=== PATIENT | female | born 1990 | race Caucasian/White ===

== ENCOUNTER 2020-05-03 00:11 | Emergency (ER) | payer MEDICAID, OTHER ==
[~2020-05-03] VITALS: Ht 160 cm; Wt 100.0 kg
[2020-05-03 01:30] VITALS: BP 115/58
== END 2020-05-03 02:16 | disposition home or self-care (01) ==
LOC: ER 00:22
DX: F10.129 Alcohol abuse with intoxication, unspecified (principal); Y90.0 Blood alcohol level of less than 20 mg/100 ml
CPT/HCPCS: 81025; 82962; 99283